=== PATIENT | male | born 1995 | race Caucasian/White ===

== ENCOUNTER 2016-07-17 13:35 | Outpatient (RCR) | payer OTHER ==
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
[~2016-07-17 13:35] MED LIST: ALEVE; CLIN300C11 PO; CLON1TAB3 PO; CYCL10TA9 PO; DEPAKOTE; DULO30CA3 PO; FLEXERIL; HYDR-3812 PO; HYOS0.1283 SL; LACT1CAP62 PO; METR500T PO; NAPR500T PO; PRD20T PO; TRAM-42 PO; TRAM50TA2 PO; XANAX; ZOLOFT
[2016-08-03] MEDS ORDERED: CYCL10TA9 PO (16:01)
== END 2016-08-14 11:49 | disposition home or self-care (01) ==
PROVIDERS: ATTEND Internal Medicine
DX: R29.898 Other symptoms and signs involving the musculoskeletal system (principal)

== ENCOUNTER 2016-08-03 15:35 | Emergency (ER) | payer OTHER ==
[~2016-08-03] VITALS: Ht 172.7 cm; Wt 99.8 kg
--- OUTSIDE RECORDS SUMMARY | 2016-08-03 15:41 | XMS REPORT | Continuity of Care Document ---
Author Author [facility] Organization [facility] Address Unknown Phone Unavailable Care Team Providers Care Hand Trucker Name Role Phone Viji Anderson III PCP [phone] Source Comments Some departments are not documenting in the electronic medical record. If you do not see the information that you expected, contact Release of Information in the Health Information Management department at [phone] for further assistance in locating additional records.[facility] Active Allergies and Adverse Reactions No [...] Taken Blood Pressure 131/94 06/27/2015 3:06 PM TRANSPLANTER ORCHID Pulse 97 06/27/2015 3:06 PM TRANSPLANTER ORCHID Temperature 36.6 C (97.9 F) 06/27/2015 3:06 PM TRANSPLANTER ORCHID Respiratory Rate 18 06/27/2015 3:06 PM TRANSPLANTER ORCHID Height 1.727 m (5' 8") 05/20/2015 1:11 PM TRANSPLANTER ORCHID Weight 88.451 kg (195 lb) 05/20/2015 1:11 PM TRANSPLANTER ORCHID Body Mass Index 29.66 05/20/2015 1:11 PM TRANSPLANTER ORCHID Oxygen Saturation 98% 06/27/2015 3:06 PM TRANSPLANTER ORCHID Plan of Care Health Maintenance Due Date Last Done Comments Physical (Comprehensive) 12/24/2002 Exam Hpv Vaccines (#1) 12/24/2006 Pertussis Vaccine 12/24/2006 Tetanus Vaccine 12/24/2012 Influenza Vaccine 03/08/2016 Results from Last 3 Months Not on file
[2016-08-03] MEDS ORDERED: CYCL10TA9 PO (16:01)
--- NOTE | 2016-08-03 16:06 | Diagnostic Imaging Report ---
INDICATION: Fall with sacrococcygeal pain. EXAMINATION: AP and lateral views of the sacrum and coccyx were obtained. FINDINGS: Sacral foramina appear unremarkable. The SI joints appear unremarkable. No overt fracture or acute bony abnormality is seen. IMPRESSION: Negative sacrum and coccyx. Dictated by: Dictated on workstation # [id number]
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
[2016-08-03] MEDS ORDERED: IBUPROFEN 800 MG (MOTRIN) TAB PO STA (16:59)
[2016-08-03 17:10] VITALS: BP 152/90
== END 2016-08-03 17:10 | disposition home or self-care (01) ==
LOC: EDUNIT# 15:35 → ER 15:37
DX: S30.0XXA Contusion of lower back and pelvis, initial encounter (principal); F17.210 Nicotine dependence, cigarettes, uncomplicated; W00.0XXA Fall on same level due to ice and snow, initial encounter; Y99.8 Other external cause status
CPT/HCPCS: 72220

== ENCOUNTER → 2016-09-12 | Outpatient (CLI) | payer OTHER ==
[~2016-09-12] MED LIST changes: +CIPR-225 PO; +DIAZ5TAB PO; +DIVA250T2 PO; +DULO60CA6 PO; +LEVO25TA5 PO; +NFNEB10T PO; +SITA100T12 PO
--- OUTSIDE RECORDS SUMMARY | 2016-09-12 11:50 | XMS REPORT | Continuity of Care Document ---
Author Author [facility] Organization [facility] Address Unknown Phone Unavailable Care Team Providers Care Web Engineer Name Role Phone Viji Anderson III PCP [phone] Source Comments Some departments are not documenting in the electronic medical record. If you do not see the information that you expected, contact Release of Information in the Health Information Management department at [phone] for further assistance in locating additional records.[facility] Active Allergies and Adverse Reactions No [...] Taken Blood Pressure 131/94 06/27/2015 3:06 PM HOUSEKEEPING MANAGER Pulse 97 06/27/2015 3:06 PM HOUSEKEEPING MANAGER Temperature 36.6 C (97.9 F) 06/27/2015 3:06 PM HOUSEKEEPING MANAGER Respiratory Rate 18 06/27/2015 3:06 PM HOUSEKEEPING MANAGER Height 1.727 m (5' 8") 05/20/2015 1:11 PM HOUSEKEEPING MANAGER Weight 88.451 kg (195 lb) 05/20/2015 1:11 PM HOUSEKEEPING MANAGER Body Mass Index 29.66 05/20/2015 1:11 PM HOUSEKEEPING MANAGER Oxygen Saturation 98% 06/27/2015 3:06 PM HOUSEKEEPING MANAGER Plan of Care Health Maintenance Due Date Last Done Comments Physical (Comprehensive) 12/24/2002 Exam Hpv Vaccines (#1) 12/24/2006 Pertussis Vaccine 12/24/2006 Tetanus Vaccine 12/24/2012 Influenza Vaccine 03/08/2016 Results from Last 3 Months Not on file
--- NOTE | 2016-09-12 18:36 | Diagnostic Imaging Report ---
PROCEDURE: US Thyroid. TECHNIQUE: Multiple real-time grayscale images were obtained of the thyroid in various projections. INDICATION: Thyromegaly. COMPARISON: There are no previous thyroid ultrasound examinations available for comparison. FINDINGS: The thyroid gland was not visualized in its entirety on the CT chest, abdomen, and pelvis exam of 12/25/2014. Where visualized, the thyroid gland appeared normal. The thyroid gland is not enlarged. The right lobe measures 4.8 x 1.6 x 1.6 cm, and the left lobe is estimated to be 4.2 x 1.5 x 1.4 cm (normal gland size 4-5 x 2 x 2 cm or less). Each lobe of the thyroid is fairly homogeneous. There is no discrete solid or cystic mass within either lobe. IMPRESSION: The thyroid gland is not enlarged. There is no focal solid or cystic mass within either lobe either. Dictated by: Dictated on workstation # [id number]
== END ==
LOC: RAD 11:46
PROVIDERS: ATTEND Nurse Practitioner Family
DX: E01.0 Iodine-deficiency related diffuse (endemic) goiter (principal)
CPT/HCPCS: 76536

== ENCOUNTER → 2016-09-20 | Outpatient (CLI) | payer OTHER ==
[~2016-09-20] MED LIST changes: +GADOBUTROL 10 MMOL/10 ML (GADAVIST) VIAL IV ONE
--- OUTSIDE RECORDS SUMMARY | 2016-09-20 16:31 | XMS REPORT | Continuity of Care Document ---
Author Author [facility] Organization [facility] Address Unknown Phone Unavailable Care Team Providers Care Manager Cardiovascular Name Role Phone Viji Anderson III PCP [phone] Source Comments Some departments are not documenting in the electronic medical record. If you do not see the information that you expected, contact Release of Information in the Health Information Management department at [phone] for further assistance in locating additional records.[facility] Active Allergies and Adverse Reactions No Known [...] Taken Blood Pressure 131/94 06/27/2015 3:06 PM ECONOMIC DEVELOPMENT MANAGER Pulse 97 06/27/2015 3:06 PM ECONOMIC DEVELOPMENT MANAGER Temperature 36.6 C (97.9 F) 06/27/2015 3:06 PM ECONOMIC DEVELOPMENT MANAGER Respiratory Rate 18 06/27/2015 3:06 PM ECONOMIC DEVELOPMENT MANAGER Height 1.727 m (5' 8") 05/20/2015 1:11 PM ECONOMIC DEVELOPMENT MANAGER Weight 88.451 kg (195 lb) 05/20/2015 1:11 PM ECONOMIC DEVELOPMENT MANAGER Body Mass Index 29.66 05/20/2015 1:11 PM ECONOMIC DEVELOPMENT MANAGER Oxygen Saturation 98% 06/27/2015 3:06 PM ECONOMIC DEVELOPMENT MANAGER Plan of Care Health Maintenance Due Date Last Done Comments Physical (Comprehensive) 12/24/2002 Exam Hpv Vaccines (#1) 12/24/2006 Pertussis Vaccine 12/24/2006 Tetanus Vaccine 12/24/2012 Influenza Vaccine 03/08/2016 Results from Last 3 Months Not on file
--- NOTE | 2016-09-20 18:46 | Diagnostic Imaging Report ---
EXAM: MRI BRAIN PITUITARY W/WO CON INDICATION: PITUITARY DYSFUNCTION COMPARISON: CT head without contrast 12/25/2014. FINDINGS: Examination is mildly limited by motion artifact. No abnormal intracranial signal, enhancement, restricted water diffusion or hemosiderin deposition. There is normal morphology including the major midline structures, cerebellopontine angle and posterior fossa. Dynamic contrast-enhanced sequences of the sella demonstrate an ill-defined region of delayed enhancement measuring up to 5 mm in the posterior right aspect of the pituitary gland. This is probably best demonstrated on images 5 of sequences 1101 through 1107. There is no mass effect. The pituitary infundibulum is midline. Normal intracranial flow voids. No hydrocephalus or extra-axial fluid collections. Normal bone marrow signal. The paranasal sinuses and orbits are unremarkable. IMPRESSION: Ill-defined region of delayed contrast enhancement in the posterior right sella without mass effect. This finding is nonspecific but can be seen with a pituitary microadenoma. MRI of the brain is otherwise negative. Dictated by: Dictated on workstation # [id number]
== END ==
LOC: RAD 16:27
PROVIDERS: ATTEND Internal Medicine
DX: E23.7 Disorder of pituitary gland, unspecified (principal)
CPT/HCPCS: 70553

== ENCOUNTER 2016-11-13 22:51 | Emergency (ER) | payer OTHER ==
[~2016-11-13] VITALS: Ht 172.7 cm; Wt 104.3 kg
[~2016-11-13 22:51] MED LIST changes: -CIPR-225 PO; -DIAZ5TAB PO; -DIVA250T2 PO; -DULO60CA6 PO; -GADOBUTROL 10 MMOL/10 ML (GADAVIST) VIAL IV ONE; -LEVO25TA5 PO; -NFNEB10T PO; -SITA100T12 PO
[2016-11-13 23:47] LABS: BILIRUBIN,URINE NEGATIVE (NEGATIVE); KETONES,URINE 1+ (NEGATIVE); LEUKOCYTE ESTERASE ,URINE 1+ (NEGATIVE); NITRITE,URINE NEGATIVE (NEGATIVE); PH,URINE 5 (5-9); PROTEIN,URINE 1+ (NEGATIVE); UROBILINOGEN,URINE NORMAL (NORMAL)
[2016-11-13 23:57] LABS: SQUAMOUS EPITHELIAL CELL,UR RARE /HPF; WBC,URINE RARE /HPF
[2016-11-14] MEDS ORDERED: HYOSCYAMINE 0.125 MG (LEVSIN) TAB SL ONE (00:45)
[2016-11-14 01:15] LABS: MEAN PLATELET VOLUME 10.1 FL (7.4-10.4); RED BLOOD COUNT 5.69 10^6/uL (4.35-5.85); RED CELL DISTRIBUTION WIDTH 13.7 % (10.0-14.5); WHITE BLOOD COUNT 12.5 10^3/uL (4.3-11.0)
[2016-11-14] MEDS ORDERED: DIVA250T2 PO (01:15)
[2016-11-14] MEDS ORDERED: NFNEB10T PO (01:15)
[2016-11-14] MEDS ORDERED: DULO60CA6 PO (01:15)
[2016-11-14] MEDS ORDERED: TRAM50TA2 PO (01:15)
[2016-11-14] MEDS ORDERED: LEVO25TA5 PO (01:15)
[2016-11-14] MEDS ORDERED: SITA100T12 PO (01:15)
[2016-11-14] MEDS ORDERED: DIAZ5TAB PO (01:15)
[2016-11-14 01:28] LABS: ALANINE AMINOTRANSFERASE 19 U/L (0-55); ALBUMIN 4.6 G/DL (3.2-4.5); ANION GAP 11 MMOL/L (5-14); ASPARTATE AMINO TRANSFERASE 20 U/L (5-34); BILIRUBIN,TOTAL 0.7 MG/DL (0.1-1.0); BLOOD UREA NITROGEN 11 MG/DL (7-18); BUN/CREATININE RATIO 13; CALCIUM 10.2 MG/DL (8.5-10.1); CARBON DIOXIDE 23 MMOL/L (21-32); CHLORIDE 108 MMOL/L (98-107); CREATININE SERUM 0.87 MG/DL (0.60-1.30); GFR ESTIMATED > 60; GLUCOSE 76 MG/DL (70-105); POTASSIUM 4.1 MMOL/L (3.6-5.0); SODIUM 142 MMOL/L (135-145); TOTAL PROTEIN 7.5 G/DL (6.4-8.2); hs C REACTIVE PROTEIN 1.03 MG/DL (0.00-0.50)
[2016-11-14] MEDS ORDERED: KETOROLAC 30 MG/ML VIAL IVP ONE (02:15)
[2016-11-14] MEDS ORDERED: metroNIDAZOLE 500 MG (FLAGYL) TAB PO ONE (02:15)
[2016-11-14] MEDS ORDERED: CIPROFLOXACIN 500 MG (CIPRO) TABLET PO ONE (02:15)
--- NOTE | 2016-11-14 02:21 | ED Abdominal Pain ---
General Chief Complaint: Abdominal/GI Problems Stated Complaint: STOMACH PAIN/RT SIDE PAIN/DIARRHEA/GAS Nursing Triage Note: Reports abd pain across lower quadrants for 2 weeks, sharp pain on right side sometimes lots of gas. Last BM about 30 min ago. Has ate dinner and it becomes worse after eating. Saw Dr Anderson at [facility] yesterday and did not mention this to him. Sepsis Screen: No Definite Risk Source of Information: Patient Exam Limitations: No Limitations History of Present Illness Time Seen By Provider: 23:21 Initial Comments This 20-year-old young man presents to the emergency room with complaints of lower abdominal pain that is waxing and waning and crampy in nature. Pain has been present for about 2 weeks. He has accompanying loose stools. He often has a sensation of rectal urgency without producing a bowel movement. He produces loose stools about 3 times daily. Last bowel movement was about 30 minutes prior to arrival. Pain is sharp in nature. He also reports excessive belching. He took some Imodium which was not very helpful. He also complains of pain about 20-30 minutes after eating. He was started on Januvia yesterday for new diagnosis of diabetes. No fever. No vomiting. No dysuria. No hematochezia. Allergies and Home Medications Allergies Coded Allergies: No Known Drug Allergies (Unverified , 08/26/15) Home Medications Ciprofloxacin HCl 500 Mg Tablet, 500 MG PO BID, #20 Prescribed by: FRNAKY BUTT on 11/14/16223 Cyclobenzaprine HCl 10 Mg Tablet, 10 MG PO TID, #56 (Reported) Diazepam 5 Mg Tablet, 5 MG PO TID, (Reported) Divalproex Sodium 250 Mg Tablet., 250 MG PO DAILY, (Reported) Duloxetine HCl 60 Mg Capsule.dr, 60 MG PO DAILY, (Reported) Hyoscyamine Sulfate 0.125 Mg Tab.subl, 1-2 TAB SL Q4H PRN for CRAMPS, #20 Prescribed by: FRANKY BUTT on 11/14/16223 Levothyroxine Sodium 25 Mcg Tablet, 25 MCG PO DAILY, (Reported) Metronidazole 500 Mg Tablet, 500 MG PO TID, #30 Prescribed by: FRANKY BUTT on 11/14/16223 Nebivolol HCl 10 Mg Tab, 10 MG PO DAILY, (Reported) Sitagliptin Phosphate 100 Mg Tablet, 100 MG PO DAILY, (Reported) Tramadol HCl 50 Mg Tablet, 50 MG PO QID PRN for PAIN-MILD, (Reported) Review of Systems Constitutional: no symptoms reported EENTM: No Symptoms Reported Respiratory: No Symptoms Reported Cardiovascular: No Symptoms Reported Gastrointestinal: See HPI Genitourinary: No Symptoms Reported Musculoskeletal: no symptoms reported Skin: no symptoms reported Psychiatric/Neurological: No Symptoms Reported Endocrine: No Symptoms Reported Past Ogrgwsc-Jeoxux-Eneiqm Hx Patient Social History Alcohol Use: Denies Use Recreational Drug Use: Yes (THC) Smoking Status: Never a Smoker Recent Foreign Travel: No Contact w/Someone Who Travel: No Recent Infectious Disease Expo: No Recent Hopitalizations: No Immunizations Up To Date Tetanus Booster (TDap): More than 5yrs Seasonal Allergies Seasonal Allergies: No Surgeries HX Surgeries: Yes (RECONSTRUCTIVE JAW R/T TRAUMATIC INJURY) Respiratory Hx Respiratory Disorders: No Cardiovascular Hx Cardiac Disorders: No Neurological Hx Neurological Disorders: Yes Neurological Disorders: Traumatic Brain Injury Genitourinary Hx Genitourinary Disorders: No Gastrointestinal Hx Gastrointestinal Disorders: No Musculoskeletal Hx Musculoskeletal Disorders: Yes (C1 FX, SKULL FX, JAW FX, chronic neck pain) Endocrine Hx Endocrine Disorders: Yes (possible thyroid issues) Endocrine Disorders: Hypothyroidsim HEENT HX ENT Disorders: No Cancer Hx Cancer: No Psychosocial Hx Psychiatric Problems: Yes Behavioral Health Disorders: Anxiety, Depression Integumentary HX Skin/Integumentary Disorder: No Blood Transfusions Hx Blood Disorders: No Adverse Reaction to a Blood Tr: No Family Medical History Significant Family History: No Pertinent Family Hx Family Medial History: Hypertension 19 MOTHER Thyroid disease 19 MOTHER Physical Exam Vital Signs VS - Last 72 Hours, by Label 11/13/16 11/14/16 23:05 02:20 Temp 97.6 97.6 Pulse 80 Resp 21 B/P (MAP) 112/83 Pulse Ox 97 O2 Delivery Room Air Capillary Refill : Less Than 3 Seconds General Appearance: WD/WN, no apparent distress HEENT: normal ENT inspection, pharynx normal Neck: normal inspection Respiratory: lungs clear, normal breath sounds, no respiratory distress, no accessory muscle use Cardiovascular: regular rate, rhythm, no edema, no murmur Gastrointestinal: normal bowel sounds, soft, tenderness (epigastric and across the lower abdomen) Extremities: normal inspection, no pedal edema Neurologic/Psychiatric: nutrition services worker II-XII nml as tested, no motor/sensory deficits, alert, normal mood/affect, oriented x 3 Skin: normal color, warm/dry Progress/Results/Core Measures Results/Orders Lab Results Laboratory Tests Test 11/13/16 23:37 11/14/16 00:58 Range/Units Urine Color YELLOW Urine Clarity CLEAR Urine pH 5 5-9 Urine Specific [place] 1.025 H 1.016-1.022 Urine Protein 1+ H NEGATIVE Urine Glucose (UA) NEGATIVE NEGATIVE Urine Ketones 1+ H NEGATIVE Urine Nitrite NEGATIVE NEGATIVE Urine Bilirubin NEGATIVE NEGATIVE Urine Urobilinogen NORMAL NORMAL MG/DL Urine Leukocyte Esterase 1+ H NEGATIVE Urine RBC (Auto) NEGATIVE NEGATIVE Urine RBC NONE /HPF Urine WBC RARE /HPF Urine Squamous Epithelial Cells RARE /HPF Urine Crystals NONE /LPF Urine Bacteria NEGATIVE /HPF Urine Casts NONE /LPF Urine Mucus LARGE H /LPF Urine Culture Indicated NO White Blood Count 12.5 H 4.3-11.0 10^3/uL Red Blood Count 5.69 4.35-5.85 10^6/uL Hemoglobin 16.0 13.3-17.7 G/DL Hematocrit 50 40-54 % Mean Corpuscular Volume 88 80-99 FL Mean Corpuscular Hemoglobin 28 25-34 PG Mean Corpuscular Hemoglobin Concent 32 32-36 G/DL Red Cell Distribution Width 13.7 10.0-14.5 % Platelet Count 293 130-400 10^3/uL Mean Platelet Volume 10.1 7.4-10.4 FL Erythrocyte Sedimentation Rate 1 0-15 MM/HR Sodium Level 142 135-145 MMOL/L Potassium Level 4.1 3.6-5.0 MMOL/L Chloride Level 108 H 98-107 MMOL/L Carbon Dioxide Level 23 21-32 MMOL/L Anion Gap 11 5-14 MMOL/L Blood Urea Nitrogen 11 7-18 MG/DL Creatinine 0.87 0.60-1.30 MG/DL Estimat Glomerular Filtration Rate > 60 BUN/Creatinine Ratio 13 Glucose Level 76 70-105 MG/DL Calcium Level 10.2 H 8.5-10.1 MG/DL Total Bilirubin 0.7 0.1-1.0 MG/DL Aspartate Amino Transf (AST/SGOT) 20 5-34 U/L Alanine Aminotransferase (ALT/SGPT) 19 0-55 U/L Alkaline Phosphatase 81 40-136 U/L C-Reactive Protein High Sensitivity 1.03 H 0.00-0.50 MG/DL Total Protein 7.5 6.4-8.2 G/DL Albumin 4.6 H 3.2-4.5 G/DL My Orders Orders - FRANKY ARIAS MD Ua Culture If Indicated (11/13/16 23:21) Saline Lock/Iv-Start (11/14/16 00:37) Cbc No Diff (11/14/16 00:37) Comprehensive Metabolic Panel (11/14/16 00:37) Hs C Reactive Protein (11/14/16 00:37) Erythrocyte Sedimentation Rate (11/14/16 00:37) Hyoscyamine Sl Tablet (Levsin Sl Tablet) (11/14/16 00:45) Ciprofloxacin Tablet (Cipro Tablet) (11/14/16 02:15) Metronidazole Tablet (Flagyl Tablet) (11/14/16 02:15) Ketorolac Injection (Toradol Injection) (11/14/16 02:15) Medications Given in ED Current Medications Medications Dose Ordered Sig/Miguel Route Start Time Stop Time Status Last Admin Dose Admin Ciprofloxacin 500 mg ONCE ONCE PO 11/14/16 02:15 11/14/16 02:16 DC 11/14/16 02:20 500 MG Hyoscyamine Sulfate 0.25 mg ONCE ONCE SL 11/14/16 00:45 11/14/16 00:46 DC 11/14/16 00:44 0.25 MG Ketorolac Tromethamine 30 mg ONCE ONCE IVP 11/14/16 02:15 11/14/16 02:16 DC 11/14/16 02:20 30 MG Metronidazole 500 mg ONCE ONCE PO 11/14/16 02:15 11/14/16 02:16 DC 11/14/16 02:20 500 MG Vital Signs/I&O Vital Sign - Last 12Hours 11/13/16 11/14/16 23:05 02:20 Temp 97.6 97.6 Pulse 80 Resp 21 B/P (MAP) 112/83 Pulse Ox 97 O2 Delivery Room Air Blood Pressure Mean: 93 Progress Note : Progress Note Levsin gave only brief relief from cramping and pain. Options discussed with patient including performing CT scan. He declines at this time and would like to speak with Dr. Anderson before ordering imaging. He would however like to try empiric antibiotic therapy with Cipro and Flagyl. The first doses were ordered in the emergency room. Toradol was also administered for pain. Patient was given a prescription for outpatient stool studies as well. Departure Impression Impression: Primary Impression: Abdominal cramping Additional Impression: Loose stools Disposition: HOME, SELF-CARE Condition: Improved Departure-Patient Inst. Decision time for Depature: 02:19 Referrals: STACY ANDERSON DO (PCP/Family) Primary Care Physician Patient Instructions: Acute Abdomen (Belly Pain), Adult (DC) Add. Discharge Instructions: Complete your antibiotics as prescribed. You may take Tylenol and/or ibuprofen for pain. Follow-up with Dr. Anderson as scheduled tomorrow. Complete your antibiotics unless otherwise directed. Drink plenty of clear liquids. Gradually advance your diet with small quantities of bland food as tolerated. All discharge instructions reviewed with patient and/or family. Voiced understanding. Scripts Hyoscyamine Sulfate (Levsin-Sl) 0.125 Mg Tab.subl 1-2 TAB SL Q4H Y for CRAMPS, #20 TAB Prov: FRANKY ARIAS MD 11/14/16 Ciprofloxacin HCl (Cipro) 500 Mg Tablet 500 MG PO BID, #20 TAB Prov: FRANKY ARIAS MD 11/14/16 Metronidazole (Flagyl) 500 Mg Tablet 500 MG PO TID, #30 TAB Prov: FRANKY ARIAS MD 11/14/16 Copy Copies To 1: STACY ANDERSON JOSHUA T MD November 14, 2016 02:21
[2016-11-14] MEDS ORDERED: CIPR-225 PO (02:24)
[2016-11-14] MEDS ORDERED: METR500T PO (02:24)
[2016-11-14] MEDS ORDERED: HYOS0.1283 SL (02:24)
[2016-11-14 02:35] VITALS: BP 139/101
== END 2016-11-14 02:35 | disposition home or self-care (01) ==
LOC: EDUNIT# 22:51 → ER 22:53
DX: R10.30 Lower abdominal pain, unspecified (principal); R19.7 Diarrhea, unspecified; Z79.899 Other long term (current) drug therapy
CPT/HCPCS: 36415; 80053; 81000; 85027; 85652; 86141

== ENCOUNTER → 2016-12-31 | Outpatient (CLI) | payer OTHER ==
[~2016-12-31] MED LIST changes: +CIPR-225 PO; +DIAZ5TAB PO; +DIVA250T2 PO; +DULO60CA6 PO; +LEVO25TA5 PO; +NFNEB10T PO; +SITA100T12 PO
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
== END ==
LOC: RAD 14:49
PROVIDERS: ATTEND Nurse Practitioner Family
DX: M54.2 Cervicalgia (principal); M54.5 Low back pain; M54.6 Pain in thoracic spine; M25.511 Pain in right shoulder
CPT/HCPCS: 72040; 72072; 72100; 73000

== ENCOUNTER → 2017-10-10 | Outpatient (CLI) | payer OTHER ==
[~2017-10-10] MED LIST changes: +ACHD5005 PO; -HYDR-3812 PO; +NAPR-1071 PO; -NAPR500T PO
--- NOTE | 2017-10-10 18:07 | Diagnostic Imaging Report ---
EXAMINATION: Right shoulder. INDICATION: Injury, shoulder pain. Three views were obtained. FINDINGS: There is no fracture, dislocation, or acute bony abnormality evident. The shoulder joint is well maintained and appears similar to the prior right clavicle exam of 12/31/2016. The soft tissues are unremarkable. IMPRESSION: 1. There is no evidence for an acute bony abnormality. 2. If there is clinical concern regarding an injury to the rotator cuff or labrum, then MRI would be recommended for further evaluation. Dictated by: Dictated on workstation # [id number]
== END ==
LOC: RAD 11:23
PROVIDERS: ATTEND Nurse Practitioner Family
DX: S49.91XA Unspecified injury of right shoulder and upper arm, initial encounter (principal); V89.2XXA Person injured in unspecified motor-vehicle accident, traffic, initial encounter
CPT/HCPCS: 73030

== ENCOUNTER → 2017-10-24 | Outpatient (CLI) | payer OTHER ==
[~2017-10-24] MED LIST changes: -CLON1TAB3 PO; +CLON1TAB4 PO
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
== END ==
LOC: RAD 07:57
PROVIDERS: ATTEND Nurse Practitioner Family
DX: M25.411 Effusion, right shoulder (principal); V89.2XXD Person injured in unspecified motor-vehicle accident, traffic, subsequent encounter; Z87.828 Personal history of other (healed) physical injury and trauma
CPT/HCPCS: 73221

== ENCOUNTER → 2018-08-26 | Outpatient (CLI) | payer OTHER ==
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
== END ==
LOC: RAD 12:28
PROVIDERS: ATTEND Nurse Practitioner Family
DX: M54.16 Radiculopathy, lumbar region (principal); M54.2 Cervicalgia; M54.6 Pain in thoracic spine
CPT/HCPCS: 72040; 72072; 72100

== ENCOUNTER 2019-03-19 08:13 | Outpatient (RCR) | payer OTHER ==
[~2019-03-19 08:13] MED LIST changes: +CLON1TAB13 PO; -CLON1TAB4 PO
== END 2019-06-17 | disposition home or self-care (01) ==
LOC: CARD 08:13
PROVIDERS: ATTEND Nurse Practitioner Family
DX: I10 Essential (primary) hypertension (principal)
CPT/HCPCS: 93225; 93226

== ENCOUNTER 2019-09-07 13:46 | Emergency (ER) | payer OTHER ==
[~2019-09-07] VITALS: Ht 170 cm; Wt 90.0 kg
[~2019-09-07 13:46] MED LIST changes: -TRAM50TA2 PO; +TRM50T PO
--- NOTE | 2019-09-07 14:12 | ED Cardiac General ---
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 He works with [employer] and thought that he may be coming down with an illness, he has felt this way before the onset of an illness. When he awakened this morning he felt perfectly fine. He does have a history of hypertension, found his blood pressure to be elevated at 150 systolic, his only antihypertensive is clonidine. He went to the school nurse found his blood pressure to be elevated at 150 systolic and recommended he be seen in the emergency room because of this. 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 ASA po TRIMMING CUTTER MACHINE: No Associated Systoms: No Chest Pain, No Cough, No Diaphoresis, No Fever/Chills, No Headaches, No Loss of Appetite; Malaise; No Nausea/Vomiting, No Rash, No Seizure, No Shortness of Air, No Syncope Allergies and Home Medications Allergies Coded Allergies: No Known Drug Allergies (Unverified , 08/26/15) Home Medications Ciprofloxacin HCl 500 Mg Tablet, 500 MG PO BID Prescribed by: FRANKY BUTT on 11/14/16223 Cyclobenzaprine HCl 10 Mg Tablet, 10 MG PO TID, (Reported) Diazepam 5 Mg Tablet, 5 MG PO TID, (Reported) Divalproex Sodium 250 Mg Tablet.dr, 250 MG PO DAILY, (Reported) Duloxetine HCl 60 Mg Capsule.dr, 60 MG PO DAILY, (Reported) Hyoscyamine Sulfate 0.125 Mg Tab.subl, 1-2 TAB SL Q4H PRN for CRAMPS Prescribed by: FRANKY BUTT on 11/14/16223 Levothyroxine Sodium 25 Mcg Tablet, 25 MCG PO DAILY, (Reported) Metronidazole 500 Mg Tablet, 500 MG PO TID Prescribed by: FRANKY BUTT on 11/14/16223 Nebivolol HCl 10 Mg Tab, 10 MG PO DAILY, (Reported) Sitagliptin Phosphate 100 Mg Tablet, 100 MG PO DAILY, (Reported) Tramadol HCl 50 Mg Tablet, 50 MG PO QID PRN for PAIN-MILD, (Reported) Patient Home Medication List Home Medication List Reviewed: Yes Review of Systems Review of Systems Constitutional: see HPI, malaise EENTM: No Symptoms Reported Respiratory: No Symptoms Reported, Orthopnea Gastrointestinal: No Symptoms Reported Genitourinary: No Symptoms Reported Musculoskeletal: no symptoms reported Skin: no symptoms reported Psychiatric/Neurological: No Symptoms Reported Endocrine: No Symptoms Reported Past Vultzaa-Escqyj-Xypepk Hx Patient Social History Alcohol Use: Denies Use Recreational Drug Use: Yes Drug of Choice: marijuana 2nd Hand Smoke Exposure: No Recent Foreign Travel: No Contact w/Someone Who Travel: No Recent Infectious Disease Expo: No Recent Hopitalizations: No Immunizations Up To Date Tetanus Booster (TDap): More than 5yrs Seasonal Allergies Seasonal Allergies: No Past Medical History Surgeries: Yes (RECONSTRUCTIVE JAW R/T TRAUMATIC INJURY) Respiratory: No Cardiac: No Neurological: Yes Traumatic Brain Injury Genitourinary: No Gastrointestinal: No Musculoskeletal: Yes (C1 FX, SKULL FX, JAW FX, chronic neck pain) Endocrine: Yes (possible thyroid issues) Hypothyroidsim HEENT: No Cancer: No Did You Recieve Any Treatments: No Psychosocial: Yes Anxiety, Depression Integumentary: No Blood Disorders: No Adverse Reaction/Blood Tranf: No Family Medical History Hypertension 19 MOTHER Thyroid disease 19 MOTHER No Pertinent Family Hx Physical Exam Vital Signs Vital Signs - First Documented 09/07/19 13:56 Temp 36.8 Pulse 110 Resp 18 B/P (MAP) 138/83 (101) Capillary Refill : Less Than 3 Seconds Height, Weight, BMI Height: 5'8" Weight: 230lbs. 0.0oz. [id number]; 31.00 BMI Method:Stated General Appearance: No Apparent Distress, WD/WN HEENT: PERRL/EOMI, TMs Normal Respiratory: Normal Breath Sounds, No Accessory Muscle Use, No Respiratory Distress Gastrointestinal: Non Tender, Soft Extremity: Normal Capillary Refill, Normal Inspection Neurologic/Psychiatric: Alert, Oriented x3 Skin: Normal Color, Warm/Dry Progress/Results/Core Measures Results/Orders My Orders Orders - DRE FOSS APRN Cbc With Automated Diff (09/07/19 14:06) Basic Metabolic Panel (09/07/19 14:06) Thyroid Stimulating Hormone (09/07/19 14:06) Free T4 (Free Thyroxine) (09/07/19 14:06) Vital Signs/I&O 09/07/19 13:56 Temp 36.8 Pulse 110 Resp 18 B/P (MAP) 138/83 (101) Blood Pressure Mean: 101 Departure Impression Primary Impression: general malaise Disposition: HOME, SELF-CARE Condition: Stable Departure-Patient Inst. Decision time for Depature: 14:12 Referrals: STACY FOSTER DO (PCP) Primary Care Physician MIGUEL FOSTER DNP (Family) Primary Care Physician Patient Instructions: NO INSTRUCTIONS GIVEN Add. Discharge Instructions: All discharge instructions reviewed with patient and/or family. Voiced nora saleh. DRE FOSS APRN Sep 07, 2019 14:12
[2019-09-07 14:39] LABS: BASOPHILS % (AUTO) 0 % (0-10); EOSINOPHILS % (AUTO) 0 % (0-10); HEMATOCRIT 46 % (40-54); HEMOGLOBIN 14.4 G/DL (13.3-17.7); LYMPHOCYTES # (AUTO) 1.5 X 10^3 (1.0-4.0); LYMPHOCYTES % (AUTO) 21 % (12-44); MEAN CORPUSCULAR HEMOGLOBIN 27 PG (25-34); MEAN CORPUSCULAR HGB CONC 31 G/DL (32-36); MEAN CORPUSCULAR VOLUME 87 FL (80-99); MEAN PLATELET VOLUME 9.6 FL (7.4-10.4); MONOCYTES # (AUTO) 0.5 X 10^3 (0.0-1.0); MONOCYTES % (AUTO) 6 % (0-12); NEUTROPHILS # (AUTO) 5.2 X 10^3 (1.8-7.8); NEUTROPHILS % (AUTO) 72 % (42-75); PLATELET COUNT 284 10^3/uL (130-400); RED CELL DISTRIBUTION WIDTH 13.4 % (10.0-14.5); WHITE BLOOD COUNT 7.3 10^3/uL (4.3-11.0)
[2019-09-07 14:58] LABS: BUN/CREATININE RATIO 13; CALCIUM 9.6 MG/DL (8.5-10.1); CARBON DIOXIDE 32 MMOL/L (21-32); CHLORIDE 103 MMOL/L (98-107); CREATININE SERUM 0.85 MG/DL (0.60-1.30); GFR ESTIMATED > 60; GLUCOSE 86 MG/DL (70-105); SODIUM 141 MMOL/L (135-145)
[2019-09-07 15:25] LABS: FREE T4 (FREE THYROXINE) 0.95 NG/DL (0.70-1.48); VALPROIC ACID 15.3 UG/ML (50.0-100.0)
[2019-09-07 15:33] VITALS: BP 138/83
== END 2019-09-07 15:33 | disposition home or self-care (01) ==
LOC: EDUNIT# 13:46 → ER 13:47
DX: R53.81 Other malaise (principal); E03.9 Hypothyroidism, unspecified; F41.9 Anxiety disorder, unspecified; F32.9 Major depressive disorder, single episode, unspecified; Z79.84 Long term (current) use of oral hypoglycemic drugs; Z82.49 Family history of ischemic heart disease and other diseases of the circulatory system; Z87.820 Personal history of traumatic brain injury
CPT/HCPCS: 36415; 80048; 80164; 84439; 84443; 85025; 99281